=== PATIENT | female | born 1960 | race Caucasian/White ===

== ENCOUNTER 2016-07-11 20:23 | Observation (INO) | payer OTHER ==
[2016-07-11] MEDS ORDERED: ONDANSETRON DISINTEGRATING 4 MG TAB ONE (20:35)
[2016-07-11] MEDS ORDERED: ONDANSETRON DISINTEGRATING 4 MG TAB PO ONE (20:36)
[2016-07-11] MEDS ORDERED: ONDANSETRON 4 MG/2 ML VIAL ONE (21:10)
[2016-07-11] MEDS ORDERED: ONDANSETRON 4 MG/2 ML VIAL IVP ONE ×2 (21:19→23:08)
[2016-07-11] MEDS ORDERED: NS 1,000 ML IV ONE (21:22)
[2016-07-11 21:25] LABS: % IMMATURE GRANULYOCYTES 0.5 % (0.0-1.1); ADD DIFF? NO; ADD MORPH? NO; ADD SCAN? NO; ATYPICAL LYMPHOCYTE FLAG 0 (0-99); FRAGMENT RBC FLAG 0 (0-99); LEFT SHIFT FLG 0 (0-99); LIPEMIA HEMOLYSIS FLAG 90 (0-99); MEAN CELL HEMOGLOBIN 32.1 pg (27.9-34.1); MEAN CELL HEMOGLOBIN CONCENTR. 34.1 g/dL (32.4-36.7); MEAN PLATELET VOLUME 9.4 fL (8.7-11.7); PLATELET CLUMPS FLAG 0 (0-99); PLATELET COUNT 368 10^3/uL (150-400); RED BLOOD CELL COUNT 4.68 10^6/uL (4.18-5.33); RED CELL DISTRIBUTION WIDTH 13.2 % (11.5-15.2)
[2016-07-11 21:38] LABS: INR 0.87 (0.83-1.16); PROTIME(PATIENT) 11.7 SEC (12.0-15.0)
[2016-07-11 21:40] LABS: ALANINE AMINOTRANSFERASE 64 IU/L (9-52); ALBUMIN 4.3 g/dL (3.5-5.0); ALKALINE PHOSPHATASE 62 IU/L (38-126); ANION GAP 18 mEq/L (8-16); ASPARTATE AMINOTRANSFERASE 39 IU/L (14-46); BILIRUBIN,TOTAL 0.9 mg/dL (0.1-1.4); BILIRUBIN-CONJUGATED 0.5 mg/dL (0.0-0.5); BILIRUBIN-UNCONJUGATED 0.4 mg/dL (0.0-1.1); CALCIUM 9.9 mg/dL (8.5-10.4); CARBON DIOXIDE 20 mEq/l (22-31); CHLORIDE 100 mEq/L (97-110); CREATININE 0.8 mg/dL (0.6-1.0); GLOMERULAR FILTRATION RATE > 60; GLUCOSE 152 mg/dL (70-100); POTASSIUM 3.5 mEq/L (3.5-5.2); SODIUM 138 mEq/L (134-144); TOTAL PROTEIN 7.7 g/dL (6.3-8.2)
[2016-07-11 21:41] LABS: APTT 20.1 SEC (23.0-38.0)
[2016-07-11] MEDS ORDERED: IOPAMIDOL (ISOVUE-300) 100 ML BTL IV ONE (22:09)
[2016-07-11] MEDS ORDERED: HYDROmorphONE/DILAUDID 1 MG/ML SYR ONE (23:04)
[2016-07-11] MEDS ORDERED: HYDROmorphONE/DILAUDID 1 MG/ML SYR IVP ONE (23:08)
--- NOTE | 2016-07-11 23:38 | EDPHY ---
H & P Stated Complaint: nausea, vomiting today, post bariatric surgery in may HPI/ROS: Chief complaint: Abdominal pain History of present illness: This is a 55-year-old female who presents to the emergency department for evaluation of abdominal pain. Patient presents to the emergency department reporting a one day history of abdominal pain. She describes diffuse pain. She has had some nausea and vomiting. She denies precipitating factors. She denies alleviating factors. She further reports she has developed some vaginal bleeding which is very abnormal for her as she has been menopausal for 10 years. She has also noted some abnormal bruising to her body. She does state during a physical approximately a month ago she had some abnormal blood studies and is currently being evaluated by Hematology. She also reports a few weeks ago she underwent a series of vaccinations for an upcoming trip to [place]. This includes hepatitis A and B, typhoid and polio booster. Review of systems: A 10 point review of systems was obtained and other than described above was negative - Personal History Current Tetanus/Diphtheria Vaccine: Unsure Current Tetanus Diphtheria and Acellular Pertussis (TDAP): Unsure - Medical/Surgical History Hx Asthma: No Hx Chronic Respiratory Disease: No Hx Diabetes: No Hx Cardiac Disease: No Hx Renal Disease: No Hx Cirrhosis: No Hx Alcoholism: No Hx HIV/AIDS: No Hx Splenectomy or Spleen Trauma: No Other PMH: bariatric surgery in may, abnormal blood work - Social History Smoking Status: Never smoked - Physical Exam Exam: General Appearance: Alert, nontoxic. Eyes: Pupils equal and round no pallor or injection. ENT, Mouth: Mucous membranes moist. Respiratory: There are no retractions, lungs are clear to auscultation. Cardiovascular: Regular rate and rhythm. Gastrointestinal: Bowel sounds present. Mild abdominal tenderness. Neurological: Alert and oriented. Strength and sensation intact and symmetrical. Skin: Warm and dry, no rashes. Musculoskeletal: Neck is supple nontender. Extremities are symmetrical, full range of motion. Psychiatric: Patient is oriented X 3, there is no agitation. Constitutional: Initial Vital Signs Heart Rate 78 07/11/16 20:31 Respiratory Rate 16 07/11/16 20:31 Blood Pressure 105/60 07/11/16 20:31 O2 Sat (%) 97 07/11/16 20:31 O2 Delivery Mode Room Air Allergies/Adverse Reactions: No Known Allergies Allergy (Verified 07/11/16 20:29) Home Medications: Medication Instructions Recorded Prozac 10 MG (*) 07/11/16 Medical Decision Making - Diagnostics Imaging: CT scan of the abdomen and pelvis shows some diffuse wall thickening of the small bowel consistent with a terminal ileitis, see report for complete details ED Course/Re-evaluation: Patient discussed with my secondary supervising physician Dr. Channing Sol. Patient presents to the emergency department with abdominal pain and nausea and vomiting. Further she has abnormal vaginal bleeding and bruising. She does have a significant leukocytosis. An abnormal CT scan of unclear etiology. Patient is unwell appearing. She will be admitted to the hospitalist service for further evaluation and care under the care of Dr. Radha Mariano. The plan has been discussed with the patient voiced understanding and agreement with it. Differential Diagnosis: Included but not limited to gastritis, gastroenteritis, biliary tract disease, pancreatitis, colitis, diverticulitis, coagulopathies, malignancy, urinary tract disease - Data Points Laboratory Results: Laboratory Results 07/11/16 21:00 07/11/16 21:00 07/11/16 07/11/16 07/11/16 21:45 21:23 21:00 WBC RBC Hgb Hct MCV MCH MCHC RDW Plt Count MPV Neut % (Auto) Lymph % (Auto) Overton % (Auto) Eos % (Auto) Baso % (Auto) Nucleat RBC Rel Count Absolute Neuts (auto) Absolute Lymphs (auto) Absolute Monos (auto) Absolute Eos (auto) Absolute Basos (auto) Absolute Nucleated RBC Immature Gran % Immature Gran # PT 11.7 SEC L SEC (12.0-15.0) INR 0.87 (0.83-1.16) APTT 20.1 SEC L SEC (23.0-38.0) VBG Lactic Acid 2.2 mmol/L H mmol/L (0.7-2.1) Sodium Potassium Chloride Carbon Dioxide Anion Gap BUN Creatinine Estimated GFR Glucose Calcium Total Bilirubin Conjugated Bilirubin Unconjugated Bilirubin AST ALT Alkaline Phosphatase Total Protein Albumin Lipase Beta HCG, Qual NEGATIVE 07/11/16 07/11/16 21:00 21:00 WBC 19.87 10^3/uL H 10^3/uL (3.80-9.50) RBC 4.68 10^6/uL 10^6/uL (4.18-5.33) Hgb 15.0 g/dL g/dL (12.6-16.3) Hct 44.0 % % (38.0-47.0) MCV 94.0 fL fL (81.5-99.8) MCH 32.1 pg pg (27.9-34.1) MCHC 34.1 g/dL g/dL (32.4-36.7) RDW 13.2 % % (11.5-15.2) Plt Count 368 10^3/uL 10^3/uL (150-400) MPV 9.4 fL fL (8.7-11.7) Neut % (Auto) 83.3 % H % (39.3-74.2) Lymph % (Auto) 10.5 % L % (15.0-45.0) Overton % (Auto) 4.9 % % (4.5-13.0) Eos % (Auto) 0.4 % L % (0.6-7.6) Baso % (Auto) 0.4 % % (0.3-1.7) Nucleat RBC Rel Count 0.0 % % (0.0-0.2) Absolute Neuts (auto) 16.56 10^3/uL H 10^3/uL (1.70-6.50) Absolute Lymphs (auto) 2.09 10^3/uL 10^3/uL (1.00-3.00) Absolute Monos (auto) 0.98 10^3/uL H 10^3/uL (0.30-0.80) Absolute Eos (auto) 0.07 10^3/uL 10^3/uL (0.03-0.40) Absolute Basos (auto) 0.07 10^3/uL 10^3/uL (0.02-0.10) Absolute Nucleated RBC 0.00 10^3/uL 10^3/uL (0-0.01) Immature Gran % 0.5 % % (0.0-1.1) Immature Gran # 0.10 10^3/uL 10^3/uL (0.00-0.10) PT INR APTT VBG Lactic Acid Sodium 138 mEq/L mEq/L (134-144) Potassium 3.5 mEq/L mEq/L (3.5-5.2) Chloride 100 mEq/L mEq/L (97-110) Carbon Dioxide 20 mEq/l L mEq/l (22-31) Anion Gap 18 mEq/L H mEq/L (8-16) BUN 17 mg/dL mg/dL (7-23) Creatinine 0.8 mg/dL mg/dL (0.6-1.0) Estimated GFR > 60 Glucose 152 mg/dL H mg/dL (70-100) Calcium 9.9 mg/dL mg/dL (8.5-10.4) Total Bilirubin 0.9 mg/dL mg/dL (0.1-1.4) Conjugated Bilirubin 0.5 mg/dL mg/dL (0.0-0.5) Unconjugated Bilirubin 0.4 mg/dL mg/dL (0.0-1.1) AST 39 IU/L IU/L (14-46) ALT 64 IU/L H IU/L (9-52) Alkaline Phosphatase 62 IU/L IU/L (38-126) Total Protein 7.7 g/dL g/dL (6.3-8.2) Albumin 4.3 g/dL g/dL (3.5-5.0) Lipase 112.0 IU/L IU/L (23-300) Beta HCG, Qual Medications Given: Discontinued Medications Hydromorphone HCl (Dilaudid) 1 mg IVP EDNOW ONE Stop: 07/11/16 23:09 Last Admin: 07/11/16 23:19 Dose: 1 mg Sodium Chloride (Ns) 1,000 mls @ 0 mls/hr IV ONCE ONE PRN Reason: Wide Open Stop: 07/11/16 21:23 Last Admin: 07/11/16 21:32 Dose: 1,000 mls Morphine Sulfate (Morphine) 6 mg IVP EDNOW ONE Stop: 07/11/16 21:20 Last Admin: 07/11/16 21:20 Dose: 6 mg Ondansetron HCl (Zofran Odt) 4 mg PO EDNOW ONE Stop: 07/11/16 20:37 Last Admin: 07/11/16 20:36 Dose: 4 mg Ondansetron HCl (Zofran) 4 mg IVP EDNOW ONE Stop: 07/11/16 21:20 Last Admin: 07/11/16 21:20 Dose: 4 mg Ondansetron HCl (Zofran) 4 mg IVP EDNOW ONE Stop: 07/11/16 23:09 Last Admin: 07/11/16 23:19 Dose: 4 mg Departure - Departure Disposition: [facility] Inpatient Acute Clinical Impression: Abnormal vaginal bleeding Abdominal pain Qualifiers: Abdominal location: generalized Qualified Code(s): R10.84 - Generalized abdominal pain Condition: Fair Referrals: Shari Wu MD [Primary Care Provider] - As per Instructions
[2016-07-12] MEDS ORDERED: ONDANSETRON 4 MG/2 ML VIAL IVP PRN (00:52)
[2016-07-12] MEDS ORDERED: ONDANSETRON DISINTEGRATING 4 MG TAB PO PRN (00:52)
[2016-07-12] MEDS ORDERED: ACETAMINOPHEN 325 MG TAB PO PRN (00:52)
[2016-07-12] MEDS ORDERED: NS 1,000 ML IV SCH (01:00)
[2016-07-12] MEDS ORDERED: CALCIUM CARBONATE 500 MG CHEWABLE TAB PO PRN (01:13)
[2016-07-12 01:37] LABS: COLOR YELLOW; LEUKOCYTE ESTERASE,URINE NEGATIVE (NEGATIVE); NITRITE,URINE NEGATIVE (NEGATIVE)
[2016-07-12 01:41] LABS: BACTERIA TRACE /hpf (NONE SEEN); MUCUS 2+ /lpf (NONE-1+)
--- NOTE | 2016-07-12 02:13 | GHP ---
[f rep st] HISTORY AND PHYSICAL DATE OF ADMISSION: 07/11/2016 CHIEF COMPLAINT: Abdominal pain, nausea, vomiting, diarrhea. HISTORY OF PRESENT ILLNESS: This is a 55-year-old female who had sudden onset of nausea, vomiting, diarrhea and had some abdominal pain today about 3 o'clock in the afternoon. She had no blood in he r stools. She has had some fevers and chills since then. Pain is getting better now, although she has continued decreased appetite. She says she ate some quinoa and some vegetables for lunch. She also states that she has been having some slight bruising which is new. She is being evaluated by H ematology for some abnormal labs, and says that her vitamin B12 was really high, but she was on supp lementation. I am not seeing necessarily that abnormal of labs in the past. She also had a little bit of vaginal bleeding, although she has been postmenopausal for 10 years. She says that it someti mes happens when her dose of her bio-identical hormones are too high. She thinks that this may be t he case. REVIEW OF SYSTEMS: A 10-point review of systems obtained and other than as stated was negative. PAST MEDICAL HISTORY: Hypertension, depression. MEDICATIONS: Reviewed. SOCIAL HISTORY: No smoking. Does drink alcohol. PAST SURGICAL HISTORY: A recent tummy tuck and breast reduction. FAMILY HISTORY: Dementia in her father who recently . PHYSICAL EXAM: VITAL SIGNS: Afebrile, blood pressure is 124/68, heart rate 72, oxygen saturation 9 8% on room air. GENERAL: The patient is well developed, no apparent distress. HEENT: Nonicteric sclerae. Extraocular movements intact. Moist mucous membranes. NECK: Supple. No thyromegaly. L UNGS: Good effort. Clear to auscultation bilaterally. CARDIOVASCULAR: Regular rate and rhythm. No murmurs, rubs, or gallops. ABDOMEN: Soft, positive bowel sounds. Mild epigastric tenderness. No rebound or guarding. EXTREMITIES: No clubbing, cyanosis, or edema. SKIN: Without rash. There is very faint bruising, one small bruise of her abdomen as well as lower leg. PSYCH: Normal mood a nd affect. LABS: White count elevated at 19, hemoglobin 15 and platelets are 369. Lactic acid is slightly maddison vated at 2.2. Chemistry has a mild anion gap acidosis. Beta hCG is negative. CT scan of the abdomen and pelvis, dictated report is not up, but per the ER physician it does show some inflammation of the terminal ileum. ASSESSMENT: This is a 55-year-old female presenting with sudden onset of nausea, vomiting, diarrhea and inflammatory changes on small bowel terminal ileum. PLAN: 1. Probable gastroenteritis versus food poisoning. Acute severe symptoms are more consistent with either gastroenteritis or food poisoning. She is not really endorsing symptoms of inflammatory valeria l disease. At this point, we will admit her overnight under observation. Will give IV fluids. We will see what her symptoms are in the morning, as well as white blood cell count. Could consider [place] stroenterology consultation at that point. 2. Vaginal bleeding. Patient states that this may be due to her hormones. She is instructed to fo llow up with her doctor who prescribes her hormones. 3. Recent lab abnormalities, again I am not sure what she is referring to as I am not seeing signif icant abnormalities in the past. She can follow up with Dr. Dyson this week as she has an appoint ment with Dr. Dyson this week to follow up. /[id number]/MODL
[2016-07-12 04:45] VITALS: RESP 18
[2016-07-12 06:07] LABS: % IMMATURE GRANULYOCYTES 0.4 % (0.0-1.1); ABSOLUTE IMMATURE GRANULOCYTES 0.04 10^3/uL (0.00-0.10); ADD DIFF? NO; ADD MORPH? NO; ADD SCAN? NO; ATYPICAL LYMPHOCYTE FLAG 0 (0-99); FRAGMENT RBC FLAG 0 (0-99); HEMATOCRIT 36.3 % (38.0-47.0); HEMOGLOBIN 12.1 g/dL (12.6-16.3); LEFT SHIFT FLG 0 (0-99); LIPEMIA HEMOLYSIS FLAG 80 (0-99); MEAN CELL HEMOGLOBIN 31.8 pg (27.9-34.1); MEAN CELL HEMOGLOBIN CONCENTR. 33.3 g/dL (32.4-36.7); MEAN CELL VOLUME 95.5 fL (81.5-99.8); MEAN PLATELET VOLUME 9.4 fL (8.7-11.7); PLATELET CLUMPS FLAG 0 (0-99); PLATELET COUNT 307 10^3/uL (150-400); RED CELL DISTRIBUTION WIDTH 13.4 % (11.5-15.2)
[2016-07-12 06:18] LABS: ALANINE AMINOTRANSFERASE 52 IU/L (9-52); ALBUMIN 3.2 g/dL (3.5-5.0); ALKALINE PHOSPHATASE 43 IU/L (38-126); ANION GAP 8 mEq/L (8-16); ASPARTATE AMINOTRANSFERASE 26 IU/L (14-46); CARBON DIOXIDE 23 mEq/l (22-31); CHLORIDE 104 mEq/L (97-110); CREATININE 0.7 mg/dL (0.6-1.0); GLOMERULAR FILTRATION RATE > 60; GLUCOSE 108 mg/dL (70-100); POTASSIUM 4.3 mEq/L (3.5-5.2); SODIUM 135 mEq/L (134-144); TOTAL PROTEIN 5.6 g/dL (6.3-8.2)
[2016-07-12 07:25] VITALS: BP 147/68; PULSE 72; TEMP 98.2; O2SAT 95
--- NOTE | 2016-07-12 11:46 | PDDCSUM ---
Discharge Summary Discharge Summary: DISCHARGE SUMMARY FOLLOW-UP ITEMS: Outpatient transvaginal ultrasound DATE OF ADMISSION: 07/11/2016 DATE OF DISCHARGE: 07/12/2016 DISCHARGE DIAGNOSES: 1. Acute ileitis 2. Vaginal bleeding 3. Acute metabolic acidosis CONSULTATIONS: None PROCEDURES / IMAGING: CT of the abdomen demonstrating terminal ileitis with moderate small bowel distention, hepatic hemangioma CHIEF COMPLAINT: Nausea vomiting diarrhea SUBJECTIVE: Patient is feeling well at time of discharge, tolerating liquids and solids PHYSICAL EXAM ON DISCHARGE: Systolic blood pressure 120, heart rate 70, afebrile overnight, satting on room air, abdomen is soft nontender nondistended, bowel sounds are present, heart rate is regular rate and rhythm, patient is somewhat anxious LABS ON DISCHARGE: Creatinine 0.7, BUN 15, white blood cell count 9800, hemoglobin 12.1, platelets [id number], liver panel unremarkable HOSPITAL COURSE BY PROBLEM: 1. Acute ileitis. The patient presents with acute ileitis noted on abdominal CT with symptoms including nausea vomiting and diarrhea, most likely secondary to subsequent small bowel distension proximal to the affected area. Because of her ileitis is most likely infectious as it has completely resolved with supportive care. The patient does not require a GI consultation at this time, but I have encouraged her to seek outpatient prefitter doors if she experiences any recurrence of symptoms. She is eating and drinking at time of discharge and is safe to go home. She is declining any symptomatic medications at this time. 2. Vaginal bleeding. Patient has very small blood clots in her urine, which are most likely vaginal in origin given that her urinalysis demonstrated very mild microscopic hematuria. Given her age and postmenopausal status, is most likely secondary to uterine fibroid. I recommend the patient follow up with outpatient scroll shear operator provider and have a transvaginal ultrasound performed. Patient is in agreement. 3. Acute metabolic acidosis. Most likely secondary to above gastrointestinal symptoms, received IV fluids, she is no longer hypovolemic. DISCHARGE MEDICATIONS: Please see official discharge medication reconciliation sheet in chart , no additional medications ordered. DISCHARGE INSTRUCTIONS: Follow up with your primary care provider and Dr. Dyson this week as well as a scroll shear operator of your choosing.
[2016-07-13] MEDS ORDERED: Herbals/Supplements -Info Only PO SCH (09:00)
[2016-07-13] MEDS ORDERED: LISINOPRIL 10 MG TAB PO SCH (09:00)
[2016-07-13] MEDS ORDERED: FLUoxetine 20 MG CAP PO SCH (09:00)
[2016-07-13] MEDS ORDERED: ASPIRIN 81 MG CHEWABLE TAB PO SCH (09:00)
== END 2016-07-12 13:30 | disposition home or self-care (01) ==
LOC: INTOOBSV 23:31 → F1N 07-12 00:44
PROVIDERS: ADMIT Internal Medicine; ATTEND Internal Medicine
DX: K52.9 Noninfective gastroenteritis and colitis, unspecified (principal); N93.9 Abnormal uterine and vaginal bleeding, unspecified; E87.2 Acidosis; I10 Essential (primary) hypertension
CPT/HCPCS: 74177; G0378; 96374; J1170; J2405; Q9967

== ENCOUNTER → 2016-07-16 | Outpatient (CLI) | payer OTHER | LOC: FIMAGING 13:24 | PROVIDERS: ATTEND Internal Medicine Hematology & Oncology | DX: N95.0 Postmenopausal bleeding (principal); D25.9 Leiomyoma of uterus, unspecified ==

== ENCOUNTER → 2016-11-12 | Outpatient (CLI) | payer OTHER | LOC: FIMAGING 13:10 | PROVIDERS: ATTEND Internal Medicine Hematology & Oncology | DX: Z12.89 Encounter for screening for malignant neoplasm of other sites (principal); M89.9 Disorder of bone, unspecified ==

== ENCOUNTER → 2017-05-17 | Outpatient (CLI) | payer OTHER | LOC: FIMAGING 10:31 | PROVIDERS: ATTEND Family Medicine | DX: Z12.31 Encounter for screening mammogram for malignant neoplasm of breast (principal) ==

== ENCOUNTER 2017-07-13 08:52 | Day surgery (SDC) | payer OTHER ==
[2017-07-13] MEDS ORDERED: NALOXONE HCL 0.4 MG/ML INJ IVP PRN (08:58)
[2017-07-13] MEDS ORDERED: PROTAMINE SULFATE 50 MG/5 ML VIAL IVP PRN (08:58)
[2017-07-13] MEDS ORDERED: GLUCAGON HCL 1 MG VIAL IVP PRN (08:58)
[2017-07-13] MEDS ORDERED: MIDAZOLAM 2 MG/2 ML VIAL IVP PRN (08:58)
[2017-07-13] MEDS ORDERED: FLUMAZENIL 0.5 MG/5 ML MDV IVP PRN (08:58)
[2017-07-13] MEDS ORDERED: fentaNYL 100 MCG/2 ML INJ IVP PRN (08:58)
[2017-07-13] MEDS ORDERED: MEPERIDINE 25 MG/ML SYR IVP PRN (08:58)
[2017-07-13] MEDS ORDERED: HEPARIN 10,000 UNIT/10 ML MDV (1,000 UNIT/ML) IVP PRN (08:58)
[2017-07-13] MEDS ORDERED: ALTEPLASE 2 MG VIAL IVP PRN (08:58)
[2017-07-13] MEDS ORDERED: NS 1,000 ML IV SCH (09:00)
--- NOTE | 2017-07-13 11:03 | PDGENHP ---
History & Physical Chief Complaint: MGUS. R/O MM. History of Present Illness: LT T10TH RIB LESION. EXPANSILE, LYTIC Pertinent Past, Social, Family History: TUMMY TUCK, BREAST REDUCTION, TONSILS Relevant Physical Exam: IN NO DISTRESS. NO BASELINE PAIN. Cardiorespiratory Assessment: RRR, CTA
--- NOTE | 2017-07-13 11:04 | PDPROPOC ---
Sedation Plan of Care Sedation Plan of Care: vital signs stable, mental status noted, patient educated of risks, benefits, alternatives, patient can tolerate sedation ASA Classification: ASA 2 Planned drugs: fentanyl, midazolam Mallampati Score: Class 1 Mallampati Reference Image: Patient passed 3-3-2 rule?: Yes
[2017-07-13] MEDS ORDERED: fentaNYL 100 MCG/2 ML INJ ONE ×2 (11:58→12:43)
[2017-07-13] MEDS ORDERED: MIDAZOLAM 2 MG/2 ML VIAL ONE ×2 (11:58→12:43)
[2017-07-13] MEDS ORDERED: oxyCODONE IR 5 MG TAB PO PRN (13:08)
[2017-07-13] MEDS ORDERED: LIDOCAINE 1% 300 MG/30 ML SDV ONE (13:08)
[2017-07-13] MEDS ORDERED: ONDANSETRON 4 MG/2 ML VIAL IVP PRN (13:08)
[2017-07-13] MEDS ORDERED: ACETAMINOPHEN 325 MG TAB PO PRN (13:08)
--- NOTE | 2017-07-13 13:10 | PDRADPN ---
Radiology Procedure Note Date of Procedure: 07/13/17 Radiologist: eLyla Brand Anesthesia: IV Sedation (FENTANYL AND VERSED) Pre-op Diagnosis: LT T10 LESION Post-op Diagnosis: SAME Indication: R/O MULTIPLE MYELOMA Procedure: CT GUIDED T10 LESION BX Finding(s): SCANT TISSUE OBTAINED DESPITE OF MULTIPLE ATTEMPTS. FADUCIALS PLACED. Inf/Abcess present in the surg proc area at time of surgery?: No Specimen(s): T10 TISSUE
[2017-07-13 14:47] VITALS: BP 119/69; PULSE 69; RESP 16; TEMP 98.3; O2SAT 95
== END 2017-07-13 14:40 | disposition home or self-care (01) ==
LOC: FIMAGING 08:52
PROVIDERS: ATTEND Internal Medicine Hematology & Oncology
PROC: 0PB13ZX Excision of 1 to 2 Ribs, Percutaneous Approach, Diagnostic (ICD-10-PCS; principal; 2017-07-13 13:01)
DX: M89.9 Disorder of bone, unspecified (principal); Z86.2 Personal history of diseases of the blood and blood-forming organs and certain disorders involving the immune mechanism
CPT/HCPCS: J2250; J2310; J3010

== ENCOUNTER → 2017-08-16 | Outpatient (CLI) | payer OTHER | LOC: FIMAGING 16:19 | PROVIDERS: ATTEND Family Medicine | DX: R22.42 Localized swelling, mass and lump, left lower limb (principal) ==

== ENCOUNTER → 2018-04-24 | Outpatient (CLI) | payer OTHER | LOC: FIMAGING 15:14 | DX: M54.5 Low back pain (principal); M50.31 Other cervical disc degeneration, high cervical region ==

== ENCOUNTER → 2018-05-22 | Outpatient (CLI) | payer OTHER | LOC: FIMAGING 09:00 | PROVIDERS: ATTEND Family Medicine | DX: Z12.31 Encounter for screening mammogram for malignant neoplasm of breast (principal) ==